=== PATIENT | female | born 1950 | race Caucasian/White ===

== ENCOUNTER 2020-04-05 11:00 | Emergency (ER) | payer MEDICARE, OTHER ==
[~2020-04-05] VITALS: Ht 167.6 cm; Wt 65.9 kg
[~2020-04-05 11:00] MED LIST: CYCL-394 PO; IBUP-1984 PO; NORCO10T PO; TRAZ50TA54 PO
[2020-04-05 11:13] VITALS: BP 101/48
[2020-04-05] MEDS ORDERED: DICL100G15 TOP (12:29)
== END 2020-04-05 12:43 | disposition home or self-care (01) ==
LOC: ER 11:00
DX: M25.531 Pain in right wrist (principal); Z79.899 Other long term (current) drug therapy
CPT/HCPCS: 73110; 99283

== ENCOUNTER 2020-06-21 09:18 | Day surgery (SDC) | payer MEDICARE, OTHER ==
[2020-06-14 12:34] LABS: BASOPHILS % (AUTO) 0.6 % (0-1); EOSINOPHILS # (AUTO) 0.1 X10'3 (0-0.9); EOSINOPHILS % (AUTO) 1.2 % (0-6); LYMPHOCYTES # (AUTO) 1.1 X10'3 (1.1-4.8); LYMPHOCYTES % (AUTO) 24.4 % (21-51); MEAN CORPUSCULAR HEMOGLOBIN 30.1 PG (27.0-31.0); MEAN CORPUSCULAR HGB CONC 33.3 g/dL (33.0-36.5); MEAN CORPUSCULAR VOLUME 90.4 FL (78-98); MONOCYTES # (AUTO) 0.4 X10'3 (0-0.9); MONOCYTES % (AUTO) 9.7 % (2-12); NEUTROPHILS # (AUTO) 2.9 X10'3 (1.8-7.7); NEUTROPHILS % (AUTO) 64.1 % (42-75); PRE OP HEMATOCRIT 37.3 % (35.0-45.0); PRE OP HEMOGLOBIN 12.4 g/dL (12.0-16.0); PRE OP PLATELET COUNT 258 X10'3 (140-440); RED BLOOD COUNT 4.12 X10'6 (4.20-5.60); RED CELL DISTRIBUTION WIDTH 13.3 % (11.5-14.5)
[2020-06-14 12:47] LABS: ALBUMIN 3.8 G/DL (3.4-5.0); ALBUMIN/GLOBULIN RATIO 1.1 (1.1-1.5); ALKALINE PHOSPHATASE 83 IU/L (46-116); BLOOD UREA NITROGEN 20 MG/DL (7-18); BUN/CREATININE RATIO 17.5 (6.6-38.0); CALCIUM 8.7 MG/DL (8.5-10.1); CHLORIDE 103 MMOL/L (99-107); CREATININE 1.14 MG/DL (0.40-0.90); PRE OP ALT 54 U/L (30-65); PRE OP ANION GAP 5 (8-16); PRE OP AST 28 U/L (10-37); PRE OP BILIRUB, TOTAL 0.4 MG/DL (0.0-1.0); PRE OP GLUCOSE 94 MG/DL (70-104); PRE OP POTASSIUM 4.1 MMOL/L (3.4-5.1); PRE OP SODIUM 137 MMOL/L (135-145); TOTAL CARBON DIOXIDE 29.2 MMOL/L (24-32); TOTAL PROTEIN 7.3 G/DL (6.4-8.2); eGFR 47 ML/MIN
[2020-06-21] VITALS (13 sets, daily range): BP systolic 133–158; BP diastolic 46–79
[~2020-06-21] VITALS: Ht 167.6 cm; Wt 66.1 kg
[~2020-06-21 09:18] MED LIST changes: +BUPIVAcaine/PF 2.5mg/ml (0.25%) 10ml vial ONE; -CYCL-394 PO; +ESCI10TA PO; +EVOL140P3 SQ; +GABA-530 PO; -IBUP-1984 PO; +MESSAGE TO NURSING IV ONE; -NORCO10T PO; +OLME40TA13 PO; +PANT40TA54 PO; +famotidine 20mg tablet PO ONE; +ringers solution, lacted 1,000 ML IV SCH
[2020-06-21] MEDS ORDERED: PROG200C11 PO (10:13)
[2020-06-21] MEDS ORDERED: MELA10TA2 PO (10:13)
[2020-06-21] MEDS ORDERED: ESTRA TOP (10:14)
[2020-06-21] MEDS ORDERED: PANT-47 PO (10:15)
[2020-06-21] MEDS ORDERED: cefazolin/dext.iso 2gm/50ml 50 ML IV ONE (12:10)
[2020-06-21] MEDS ORDERED: MIDAZolam 1mg/ml 10ml vial ONE (12:37)
[2020-06-21] MEDS ORDERED: fentaNYL/PF 50MCG/1 ML 2ML syringe ONE (12:37)
[2020-06-21] MEDS ORDERED: labetalol 20mg/4ml (5mg/ml) syringe IV PRN (12:40)
[2020-06-21] MEDS ORDERED: ondansetron/PF 4mg/2ml inj IV PRN (12:40)
[2020-06-21] MEDS ORDERED: hydrALAZINE 20mg/ml inj. IV PRN (12:40)
[2020-06-21] MEDS ORDERED: fentaNYL/PF 50MCG/1 ML 2ML syringe IV PRN ×2 (12:40)
[2020-06-21] MEDS ORDERED: ringers solution, lacted 1,000 ML IV SCH (12:40)
[2020-06-21] MEDS ORDERED: morphine 4 MG/ML inj SYRINge IV PRN (12:40)
[2020-06-21] MEDS ORDERED: BUPIVAcaine/PF 2.5mg/ml (0.25%) 10ml vial IJ ONE (13:25)
[2020-06-21] MEDS ORDERED: BUPIVAcaine/PF 2.5mg/ml (0.25%) 10ml vial ONE (13:53)
--- NOTE | 2020-06-21 14:03 | NUR ---
FROM OR ON [facility] ACC BY DR ORLANDO. ORAL AIRWAY IN PLACE. SLEEPY.DRESSING TO RT ARM /HAND SPLINT, CDI. FINGERS ARE WARM. MOVE AND HAVE BRISK CAP REFILL.
[2020-06-21] MEDS: morphine 2 MG/ML inj. syringe IV PRN ×2 (14:29→14:55)
--- NOTE | 2020-06-21 14:33 | NUR ---
BEING MEDICATED FOR PAIN. WRIST REMAINS ELEVATED ON PILLOW. FINGERS WARM AND MOVE. VSS.
[2020-06-21] MEDS ORDERED: HYDROcodone/acetaminophen 10/325mg tab PO ONE (15:05)
[2020-06-21] MEDS ORDERED: acetaminophen 1,000mg/100ml IV 100 ML IV SCH (15:45)
--- NOTE | 2020-06-21 16:33 | NUR ---
TO HOME. FEELS MUCH BETTER. VSS, IV OUT. NO N/V. HAD SOME SLIGHT EARLIER WAS MED AND NOW RESOLVED. DSG CDI. FINGERS WARM, MOVE AND HAVE BRISK CAP REFILLS. GIVEN IS AND INSTRUCTIONS. TO HOME WITH DRIVING. ALL QUESTIONS ANSWERED, STATES UNDERSTANDS.
== END 2020-06-21 16:33 | disposition home or self-care (01) ==
LOC: PAS 09:18
PROVIDERS: ATTEND Orthopaedic Surgery Hand Surgery
DX: M25.531 Pain in right wrist (principal); M65.841 Other synovitis and tenosynovitis, right hand; K21.9 Gastro-esophageal reflux disease without esophagitis; F41.9 Anxiety disorder, unspecified; F32.9 Major depressive disorder, single episode, unspecified; I12.9 Hypertensive chronic kidney disease with stage 1 through stage 4 chronic kidney disease, or unspecified chronic kidney disease; N18.9 Chronic kidney disease, unspecified; Z20.828 Contact with and (suspected) exposure to other viral communicable diseases; Z79.899 Other long term (current) drug therapy; Z90.710 Acquired absence of both cervix and uterus; Z98.890 Other specified postprocedural states; Z87.891 Personal history of nicotine dependence; Z72.89 Other problems related to lifestyle
CPT/HCPCS: 25118; 29844; 36415; 80053; 82948; 85025; 87635; J0131; J2250; J2270; J2405; J3010; J3490; J7120; 88305; A4215; A4618; A6449